=== PATIENT | male | born 1985 | race Caucasian/White ===

== ENCOUNTER 2016-09-08 21:47 | Emergency (ER) | payer BC ==
[~2016-09-08] VITALS: Ht 180.3 cm; Wt 160.1 kg
[2016-09-08 21:53] VITALS: BP 146/84
[2016-09-09] MEDS ORDERED: LIDOCAINE 1% HCL (LOCAL ANESTH.) INJ 20ML MDV ONE (03:20)
[2016-09-09] MEDS ORDERED: BACITRACIN-POLYMYXIN B TOPICAL OINT UD TOP ONE (04:04)
== END 2016-09-09 04:17 | disposition home or self-care (01) ==
LOC: ER 21:52
DX: S61.012A Laceration without foreign body of left thumb without damage to nail, initial encounter (principal); W26.0XXA Contact with knife, initial encounter; Y93.89 Activity, other specified; Y99.8 Other external cause status; Y92.098 Other place in other non-institutional residence as the place of occurrence of the external cause
CPT/HCPCS: 12002; 99283; J2001